=== PATIENT | male | born 1965 | race Caucasian/White ===

== ENCOUNTER 2016-12-19 10:49 | Emergency (ER) | payer SELFPAY ==
--- NOTE | 2016-12-27 17:46 | ER ---
ADMIT: 12/19/2016 RM/LOC: ER [facility] MR#: [id number] [facility] [address], [place] [id number] JESSICA MARISCAL [address] [place] [address] Emergency Room Report SEX: M AGE: 51 : 1965 DATE: 12/19/2016 ADDENDUM: This patient comes to the ER by police for med clearance. He is to go to detention. They noticed that his blood pressure was extremely high 223/141. So, they sent him here to the ER for medical clearance. He denies any physical complaints and states he feels healthy. In the ER, his blood pressure was 238/136, map of 162. I did want to give the patient some clonidine and lisinopril. He refused to take any medications while he was here. I spoke with Dr. Recinos. He felt that he was still stable especially since he has no complaints to go to the detention, and per Dr. Recinos, I signed the medical clearance form. I did speak with the patient at length on the importance of taking blood pressure medication, and I did write him a prescription for lisinopril. We will have him follow up with his primary, and I did let the detention know. Also, I recommended blood pressure medication, but the patient refused. Please see my T-sheet. JEREMY Horton / Chepe Recinos MD / dwaine JOB #: [id number] CC: Chepe Recinos MD, Attending Physician Panda Sylvester MD, Family Physician
== END 2016-12-19 12:15 | disposition home or self-care (01) ==
LOC: ER 10:49
DX: I10 Essential (primary) hypertension (principal)